=== PATIENT | male | born 1940 | race Caucasian/White ===

== ENCOUNTER 2024-05-19 22:10 | Emergency (ER) | payer MEDICARE, SELFPAY ==
[2024-05-19 22:19] VITALS: BP 155/67; PULSE 65; RESP 18; TEMP 37.5; O2SAT 96; BMI 29.5
[2024-05-19 23:31] VITALS: PULSE 72; RESP 17; O2SAT 90
--- NOTE | 2024-05-19 23:31 | PC.NURSE ---
Pt's O2 saturation at 89-90% on RA. pt does endorse he has COPD. Does not wear oxygen at home. Denies SOB. Dr. Carrion aware and says pt does not need oxygen applied at this time and appropriate o2 level for him 89-90% RA if asymptomatic.
--- NOTE | 2024-05-19 23:45 | ED.GENADULT ---
HPI - General Adult General Chief complaint: Fever Stated complaint: fever, shakes, had surgery yesterday Time Seen by Provider: 05/19/24 23:31 Source: patient Mode of arrival: Wheelchair History of Present Illness HPI narrative: 84-year-old male presents for general evaluation. 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 He says that earlier today he had a wound check and was told everything looked good. This evening he began to feel chills. He says he's had sepsis before after stepping on a nail and wants to make sure he's not developing sepsis. No measured temperatures at home. Related Data Allergies Allergy/AdvReac Type Severity Reaction Status Date / Time No Known Drug Allergies Allergy Verified 05/19/24 22:19 Patient History Social History Smoking Status: Never smoker Smoking Status: Never smoker Exam Initial Vital Signs Initial Vital Signs: Vital Signs Temperature 99.5 F 05/19/24 22:19 Pulse Rate 65 05/19/24 22:19 Respiratory Rate 18 05/19/24 22:19 Blood Pressure 155/67 H 05/19/24 22:19 Pulse Oximetry 96 05/19/24 22:19 Oxygen Delivery Method Room Air 05/19/24 22:19 Const: Awake, alert, no acute distress, nontoxic appearing Cardiac: regular rate, regular rhythm RESP: unlabored, clear bilaterally, no wheezing Skin: Warm, Dry, sutures clean, dry, intact, no erythema Neuro: AO x3, CN II-XII grossly intact, moves all extremities Course Orders Ordered: ED Orders 05/19/24 23:53 Blood Culture Stat Complete Blood Count AUTO DIFF Stat Comprehensive Metabolic Panel Stat Covid-19 + FLU A/B + RSV - PCR Stat Vital Signs Vital signs: Vital Signs - 8 hr 05/19/24 22:19 05/19/24 23:31 05/20/24 00:00 Temperature 99.5 F Pulse Rate 65 72 63 Respiratory Rate 18 17 16 Blood Pressure 155/67 H Pulse Oximetry 96 90 L 89 L Oxygen Delivery Method Room Air Room Air Room Air 05/20/24 00:00 05/20/24 00:30 05/20/24 00:30 Temperature Pulse Rate 61 Respiratory Rate 17 Blood Pressure 131/60 151/66 H Pulse Oximetry 93 Oxygen Delivery Method Room Air Medical Decision Making Lab Data 05/19/24 23:53 05/19/24 23:53 Labs: Lab Results 05/19/24 Range/Units 23:53 WBC 9.7 (4.5-11.0) X10^3/uL RBC 3.66 L (4.5-5.9) X10^6/uL Hgb 11.2 L (13.5-17.5) g/dL Hct 33.1 L (41-53) % MCV 90.6 (80-100) fL MCH 30.6 (26-34) PG MCHC 33.8 (30-36) % RDW 15.1 H (11.6-14.8) % Plt Count 167 (150-400) X10^3/uL Neut % (Auto) 70.8 (50-75) % Lymph % (Auto) 13.3 L (25-40) % Hernando % (Auto) 11.6 (3-14) % Eos % (Auto) 3.5 (2-4) % Baso % (Auto) 0.8 (0-2) % Neut # (Auto) 6900 (7041-2873) /uL Lymph # (Auto) 1300 (7910-0114) /uL Hernando # (Auto) 1100 H (0-900) /uL Eos # (Auto) 300 (0-450) /uL Baso # (Auto) 100 (0-100) /uL Sodium 135 L (137-145) mmol/L Potassium 5.2 H (3.4-5.1) mmol/L Chloride 105 (98-107) mmol/L Carbon Dioxide 23 (22-32) mmol/L BUN 38 H (9-20) mg/dL Creatinine 1.76 H (0.66-1.25) mg/dL Estimated GFR 38 L (>60) mL/min BUN/Creatinine Ratio 21.6 (6-22) Glucose 180 H (80-110) mg/dL Calcium 9.4 (8.4-10.2) mg/dL Total Bilirubin 0.9 (0.2-1.3) mg/dL AST 21 (17-59) IU/L ALT 15 (<50) IU/L Alkaline Phosphatase 105 (38-126) U/L Total Protein 7.8 (6.3-8.2) g/dL Albumin 4.3 (3.5-5.0) g/dL Globulin 3.5 (1.7-4.1) g/dL Albumin/Globulin Ratio 1.2 (1.0-2.8) SARS-CoV-2 (PCR) Negative (Negative) Influenza A (RT-PCR) Flu a negative (NEGATIVE) Influenza B (RT-PCR) Flu b negative (NEGATIVE) RSV (PCR) Negative (Negative) MDM Narrative Additional Information: Well-appearing patient with chills at home, wants to make sure that he it was not developing sepsis. Afebrile on arrival, wound appears clean, dry, intact. There is no excessive warmth, dehiscence of sutures, or evidence of infection on exam. Labs normal. Patient informed of normal physical exam findings and lab results. He was relieved to know that he was not appear to be developing sepsis at this time. He has upcoming appointments with his surgeon. Patient given ER return precautions. Discharge Plan Departure Patient Disposition: Home Clinical Impression: Chills Instructions: How to Care for a Surgical Wound Activity Restrictions/Additional Instructions: Your laboratory work today did not show any signs of sepsis. If your symptoms worsen please come back to the ER for repeat evaluation, otherwise you can follow up as previously scheduled with your surgeon Stand Alone Forms: Patient Portal/API/Survey
[2024-05-20] VITALS: BP 131/60; PULSE 63; RESP 16; O2SAT 89
--- NOTE | 2024-05-20 | PC.NURSE ---
pt reports having surgery on 05/18/24 on left side of face to remove CA. reports having chills that began on 05/19/24 at 1700. Denies any other symptoms. Did not check temp at home. This nurse and Dr. Carrion assessed surgical site, clean, dry, intact no drainage.
[2024-05-20 00:09] LABS: Add Manual Diff / Slide Review NO; Basophils Absolute Auto 100 /uL (0-100); Basophils Percent Auto 0.8 % (0-2); Eosinophils Absolute Auto 300 /uL (0-450); Eosinophils Percent Auto 3.5 % (2-4); Hematocrit 33.1 % (41-53); Hemoglobin 11.2 g/dL (13.5-17.5); Lymphocytes Absolute Auto 1300 /uL (1100-4500); Lymphocytes Percent Auto 13.3 % (25-40); Mean Corpuscular HGB Conc 33.8 % (30-36); Mean Corpuscular Hemoglobin 30.6 PG (26-34); Mean Corpuscular Volume 90.6 fL (80-100); Monocytes Absolute Auto 1100 /uL (0-900); Monocytes Percent Auto 11.6 % (3-14); Neutrophils Absolute Auto 6900 /uL (1500-7000); Neutrophils Percent Auto 70.8 % (50-75); Platelet Count 167 X10^3/uL (150-400); Red Blood Cell Count 3.66 X10^6/uL (4.5-5.9); Red Cell Distribution Width 15.1 % (11.6-14.8); White Blood Cell Count 9.7 X10^3/uL (4.5-11.0)
[2024-05-20 00:23] LABS: Alanine Aminotransferase 15 IU/L (<50); Albumin 4.3 g/dL (3.5-5.0); Albumin Globulin Ratio 1.2 (1.0-2.8); Alkaline Phosphatase 105 U/L (38-126); Aspartate Aminotransferase 21 IU/L (17-59); BUN Creatinine Ratio 21.6 (6-22); Bilirubin Total 0.9 mg/dL (0.2-1.3); Blood Urea Nitrogen 38 mg/dL (9-20); Calcium 9.4 mg/dL (8.4-10.2); Carbon Dioxide 23 mmol/L (22-32); Chloride 105 mmol/L (98-107); Estimated Glomerular Filt Rate 38 mL/min (>60); Globulin 3.5 g/dL (1.7-4.1); Glucose 180 mg/dL (80-110); HEMOLYSIS < 15 (0-50); Sodium 135 mmol/L (137-145); Total Protein 7.8 g/dL (6.3-8.2)
[2024-05-20 00:29] LABS: Potassium 5.2 mmol/L (3.4-5.1)
[2024-05-20 00:30] VITALS: BP 151/66; PULSE 61; RESP 17; O2SAT 93
[2024-05-20 00:46] LABS: Influenza A - CEPHEID Flu A NEGATIVE (NEGATIVE); Influenza B - CEPHEID Flu B NEGATIVE (NEGATIVE); Respiratory Syncytial Virus Negative (Negative)
[2024-05-20 00:53] LABS: COVID-19 CEPHEID 4-PLEX PCR Negative (Negative)
[2024-05-20 01:00] VITALS: BP 131/60; PULSE 61; RESP 18; O2SAT 91
[2024-05-20 01:26] VITALS: BP 151/66; PULSE 63; RESP 19; O2SAT 92
== END 2024-05-20 01:27 | disposition home or self-care (01) ==
PROVIDERS: Emergency Provider Emergency Medicine
DX: R68.83 Chills (without fever) (principal); Z98.890 Other specified postprocedural states
CPT/HCPCS: 0241U; 36415; 80053; 85025; 87040; 99282; 99283